=== PATIENT | female | born 1995 | race Caucasian/White ===

== ENCOUNTER 2016-03-28 10:41 | Emergency (ER) | payer MEDICAID ==
[2016-03-28 11:18] VITALS: BP 130/79
--- NOTE | 2016-04-07 16:02 | UC ---
Respiratory Complaint HPI - HPI Summary HPI Summary: seen ob doctor this morning--all is weel with fetus pt has been having 9 days of chest pain and coughing up blood, some fevers(subjective) some congestion- seen here by OB for evaluation - History of Current Complaint Chief Complaint: UCGeneralIllness Stated Complaint: SINUS CONGESTION Time Seen by Provider: 03/28/16 11:33 Hx Obtained From: Patient Hx Last Menstrual Period: JUNE 2015 ?: Yes Onset/Duration: Gradual Onset, Lasting Days - 9 Timing: Constant Severity Initially: Moderate Severity Currently: Moderate Pain Intensity: 8 Pain Scale Used: 0-10 Numeric Character: Sputum Description: - bloody Aggravating Factors: Deep Breaths Alleviating Factors: Nothing Associated Signs And Symptoms: Positive: Fever - subjective, Pleuritic Chest Pain, Edema - mild, URI, Nasal Congestion. Negative: Calf Swelling, Sinus Discomfort - Allergies/Home Medications Allergies/Adverse Reactions: Allergies Allergy/AdvReac Type Severity Reaction Status Date / Time No Known Allergies Allergy Verified 03/28/16 12:32 Home Medications: Home Medications GuaiFENesin DM* [Robitussin DM*] 03/28/16 [History] Ondansetron TAB* [Zofran Tab*] 03/28/16 [History] Pediatric Multiple Vitamin W/ [Flintstones Gummies Plus] 03/28/16 [History] Phenylephrine W/ Acetaminophen [Tylenol Sinus Congestion 5-325 mg] 03/28/16 [ History] PMH/Surg Hx/FS Hx/Imm Hx Previously Healthy: No Endocrine History Of: Denies: Diabetes, Thyroid Disease Cardiovascular History Of: Denies: Cardiac Disorders, Hypertension Respiratory History Of: Denies: COPD, Asthma GI/ History Of: Denies: Gastroesophageal Reflux, Ulcer Neurological History Of: Reports: Seizures - seizures when pt passess out. Last seizure was years ago per pt. Psychological History Of: Reports: Anxiety - counseling - Surgical History Surgical History: Yes Surgery Procedure, Year, and Place: Impacted teeth operated on in - Family History Known Family History: Positive: None, Diabetes Family History: FHx of thyroid diseae -- Mother. FHx of [place] - Social History Occupation: Unemployed Lives: With Family Alcohol Use: None Substance Use Type: None Smoking Status (MU): Never Smoked Tobacco - Immunization History Most Recent Influenza Vaccination: n/a Most Recent Tetanus Shot: 2014 Most Recent Pneumonia Vaccination: n/a Review of Systems Constitutional: Fever - subjective, Chills Skin: Negative Eyes: Negative ENT: Negative Respiratory: Cough Cardiovascular: Chest Pain Gastrointestinal: Negative Genitourinary: Negative Motor: Negative Neurovascular: Negative Musculoskeletal: Negative Neurological: Negative Psychological: Negative All Other Systems Reviewed And Are Negative: Yes Physical Exam Triage Information Reviewed: Yes Appearance: Well-Appearing, No Pain Distress, Well-Nourished Vital Signs: Initial Vital Signs Temp 97.9 F 03/28/16 11:14 Pulse 100 03/28/16 11:14 Resp 18 03/28/16 11:14 BP 130/79 03/28/16 11:14 Pulse Ox 99 03/28/16 11:14 Vital Signs Reviewed: Yes Eye Exam: Normal Eyes: Positive: Conjunctiva Clear ENT Exam: Normal ENT: Positive: Normal ENT inspection, Hearing grossly normal, TMs normal. Negative: Nasal congestion, Nasal drainage, Tonsillar swelling, Tonsillar exudate, Trismus, Muffled/hoarse voice Neck exam: Normal Neck: Positive: Supple, Nontender, No Lymphadenopathy Respiratory Exam: Normal Respiratory: Positive: Chest non-tender, Lungs clear, Normal breath sounds, No respiratory distress, No accessory muscle use Cardiovascular Exam: Normal Cardiovascular: Positive: RRR, No Murmur, Pulses Normal, Brisk Capillary Refill Musculoskeletal Exam: Normal Musculoskeletal: Positive: Strength Intact, ROM Intact, No Edema Neurological Exam: Normal Neurological: Positive: Alert, Muscle Tone Normal Psychological Exam: Normal Skin Exam: Normal UC Diagnostic Evaluation - Laboratory O2 Sat by Pulse Oximetry: 99 Respiratory Course/Dx - Course Course Of Treatment: transfer to ED - Differential Dx/Diagnosis Differential Diagnosis/HQI/PQRI: Pulmonary Edema, Lower Resp Infection, Pulmonary Embolism, Other - uri Provider Diagnoses: Chest pain, hemoptyis, Discharge - Discharge Plan Condition: Stable Disposition: AGAINST MEDICAL ADVICE Referrals: No Primary Care Phys,NOPCP [Primary Care Provider] -
== END 2016-03-28 11:43 | disposition left against medical advice (07) ==
LOC: UCEAST 10:41
DX: O26.899 Other specified pregnancy related conditions, unspecified trimester (principal); R07.89 Other chest pain; R04.2 Hemoptysis
CPT/HCPCS: 99212; G0463

== ENCOUNTER 2016-03-28 12:27 | Emergency (ER) | payer MEDICAID ==
[2016-03-28 12:32] VITALS: BP 133/77
--- NOTE | 2016-03-28 15:15 | ED ---
Influenza-Like Illness - HPI Summary HPI Summary: Patient is 37 weeks and presents with approximately 8 days of cough, sore throat, chest and nasal congestion. Because she has a history of bronchitis , she called her PONY TRIMMER to see if she should be evaluated since it had lasted 8 days. She was referred to [facility] where she reported producing dark colored blood tinged sputum when she coughed with SOB. She reported a fever, but admits to me her temperature was never higher than "99.something". She has been short of breath, but admits it is not any different than her normal feeling of breathing while being so . She denies any new SOB, CP, calf swelling or pain. Her throat has been sore without difficulty swallowing or breathing. Her vital signs are stable at this visit. - History of Current Complaint Chief Complaint: EDUpperRespComplaint Time Seen by Provider: 03/28/16 14:04 Hx Obtained From: Patient, Family/Skein Winding Operator Onset/Duration: Gradual Onset Severity: Mild Associated Signs & Symptoms: Cough, Sore Throat, Nasal Congestion - Allergy/Home Medications Allergies/Adverse Reactions: Allergies Allergy/AdvReac Type Severity Reaction Status Date / Time No Known Allergies Allergy Verified 03/28/16 12:32 PMH/Surg Hx/FS Hx/Imm Hx Endocrine/Hematology History: Reports: Hx Anemia Denies: Hx Diabetes, Hx Thyroid Disease Cardiovascular History: Denies: Hx Hypertension Respiratory History: Denies: Hx Asthma, Hx Chronic Obstructive Pulmonary Disease (COPD) GI History: Denies: Hx Ulcer History: Reports: Other Problems/Disorders - UTI in Neurological History: Reports: Hx Seizures - seizures when pt passess out. Last seizure was years ago per pt. Psychiatric History: Reports: Hx Anxiety - counseling - Surgical History Surgery Procedure, Year, and Place: Impacted teeth operated on in Infectious Disease History: No Infectious Disease History: Denies: Hx Clostridium Difficile, Hx Hepatitis, Hx Human Immunodeficiency Virus (HIV), Hx of Known/Suspected MRSA, Hx Shingles, Hx Tuberculosis, Traveled Outside the [place] in Last 30 Days - Family History Known Family History: Positive: None, Diabetes Family History: FHx of thyroid diseae -- Mother. FHx of [place] - Social History Alcohol Use: None Hx Substance Use: No Substance Use Type: Reports: None Hx Tobacco Use: No Smoking Status (MU): Current Every Day Smoker Review of Systems Negative: Fever, Chills, Fatigue Positive: Sore Throat, Nasal Discharge. Negative: Ear Ache Negative: Chest Pain Negative: Shortness Of Breath, Cough Negative: Abdominal Pain, Vomiting, Diarrhea, Nausea Negative: Myalgia, Edema Negative: Bruising Negative: Headache All Other Systems Reviewed And Are Negative: Yes Physical Exam Triage Information Reviewed: Yes Vital Signs On Initial Exam: Initial Vitals Temp Pulse Resp BP Pulse Ox 97.7 F 106 16 133/77 99 03/28/16 12:29 03/28/16 12:29 03/28/16 12:29 03/28/16 12:29 03/28/16 12:29 Vital Signs Reviewed: Yes Appearance: Positive: Well-Appearing, No Pain Distress, Obese - limits assessment Skin: Positive: Warm, Skin Color Reflects Adequate Perfusion, Dry, Soft. Negative: Tender, Erythema @ Head/Face: Positive: Normal Head/Face Inspection Eyes: Positive: EOMI, LIZETTE, Conjunctiva Clear ENT: Positive: Hearing grossly normal, Pharynx normal Neck: Positive: Supple, Nontender. Negative: No Lymphadenopathy Respiratory/Lung Sounds: Positive: Clear to Auscultation, Breath Sounds Present Cardiovascular: Positive: RRR - exam pulse was 86 Abdomen Description: Positive: Nontender, Soft Bowel Sounds: Positive: Present Musculoskeletal: Positive: Strength/ROM Intact. Negative: Pain @, Kvng Sign Left, Kvng Sign Right, Edema Left, Edema Right Neurological: Positive: Sensory/Motor Intact, Alert, Oriented to Person Place, Time, Normal Gait Psychiatric: Positive: Affect/Mood Appropriate AVPU Assessment: Alert Diagnostics - Vital Signs Vital Signs Temp Pulse Resp BP Pulse Ox 03/28/16 12:29 97.7 F 106 16 133/77 99 - Laboratory Lab Results: Negative strep Lab Statement: Any lab studies that have been ordered have been reviewed, and results considered in the medical decision making process. Flu Symptom Course/Dx - Course Course Of Treatment: Patient was discussed with Dr. Meredith due to the report given from [facility]. Upon exam and presentation the patient's symptoms were consistent with a viral syndrome. - Diagnoses Differential Diagnosis/HQI/PQRI: Positive: Bronchitis, Influenza, Pneumonia, RSV , Upper Respiratory Infection Provider Diagnoses: Viral syndrome Discharge - Discharge Plan Condition: Stable Disposition: HOME Patient Education Materials: Viral Syndrome (ED) Referrals: No Primary Care Phys,NOPCP [Primary Care Provider] - Additional Instructions: Please continue to use the over the counter medication you have been using, making sure to drink extra fluids. Follow-up with your PONY TRIMMER or primary care provider if your symptoms continue for a total of 14 days. If your symptoms worsen, you can return to the emergency department or speak with your PCP or OB/ NOVELTY TWISTER OPERATOR.
== END 2016-03-28 16:23 | disposition home or self-care (01) ==
LOC: ED 12:27
DX: O98.513 Other viral diseases complicating pregnancy, third trimester (principal); B34.9 Viral infection, unspecified; Z3A.37 37 weeks gestation of pregnancy; O99.333 Smoking (tobacco) complicating pregnancy, third trimester
CPT/HCPCS: 87651; 99282

== ENCOUNTER 2016-04-16 19:05 | Inpatient (IN) | payer MEDICAID, OTHER ==
[2016-04-16] MEDS ORDERED: Dinoprostone* 10 MG VAG.SUPP VAGINAL ONE (20:06)
[2016-04-17] MEDS ORDERED: Misoprostol TAB* 100 MCG VAGINAL ONE (09:47)
[2016-04-17] MEDS ORDERED: Misoprostol TAB* 100 MCG ONE ×2 (09:51→14:00)
[2016-04-17] MEDS: Misoprostol TAB* 100 MCG VAGINAL SCH (14:04)
[2016-04-17] MEDS ORDERED: Promethazine INJ(RESTRICTED)* 25 MG/ML 1 ML VIAL IV ONE (19:00)
[2016-04-17] MEDS: Nalbuphine* 20 MG/ML 1 ML VIAL IV PRN (19:27)
[2016-04-18] MEDS: Misoprostol TAB* 100 MCG VAGINAL SCH ×3 (03:39→04:13)
[2016-04-18 08:43] LABS: Hematocrit 33 % (35-47); Hemoglobin 10.8 g/dl (12.0-16.0); Mean Corpuscular HGB Conc 32 g/dl (31-36); Mean Corpuscular Hemoglobin 28 pg (27-31); Mean Corpuscular Volume 85 fL (80-97); Mean Platelet Volume 8 um3 (7.4-10.4); Red Blood Count 3.92 10^6/ul (4.0-5.4); Red Cell Distribution Width 15 % (10.5-15); White Blood Count 11.2 10^3/ul (3.5-10.8)
[2016-04-18] MEDS ORDERED: Oxytocin in LR* 20 UNITS/1,000 ML BAG IVPB SCH ×2 (10:00→23:00)
[2016-04-18] MEDS ORDERED: Lidocaine 1% MPF* 2 ML VIAL ONE (10:35)
[2016-04-18] MEDS ORDERED: OBEPIDURAL* 250 ML ONE (11:09)
[2016-04-18] MEDS ORDERED: fentaNYL* 50 MCG/ML 2 ML VIAL (100 MCG VIAL) ONE ×2 (11:09→21:49)
[2016-04-18] MEDS ORDERED: Famotidine TAB* 20 MG PO PRN (12:06)
[2016-04-18] MEDS ORDERED: Sodium Citrate/Citric Acid* 15 ML UDC PO PRN (12:06)
[2016-04-18] MEDS ORDERED: Phenylephrine IV* 40 MCG/ML 10 ML SYRINGE IV PUSH PRN ×2 (12:06)
[2016-04-18] MEDS ORDERED: OBEPIDURAL* 250 ML EPIDURAL SCH (13:00)
[2016-04-18] MEDS ORDERED: ceFOXitin 2 GM IVPREMIX* 2 GM/50 ML BAG ONE (20:44)
[2016-04-18] MEDS ORDERED: Sodium Bicarbonate 8.4% SYR* 10 ML SYRINGE ONE (20:58)
[2016-04-18] MEDS ORDERED: Lidocaine 2% EPI 1:200000 MPF* 20 ML VIAL ONE (20:58)
[2016-04-18] MEDS ORDERED: OXYTOCIN* 10 UNITS/ML 1 ML VIAL ONE (21:50)
[2016-04-18] MEDS ORDERED: Morphine PF AMP (0.5MG/ML)* 5 MG/10 ML AMP ONE (21:54)
[2016-04-18] MEDS ORDERED: Nalbuphine* 20 MG/ML 1 ML VIAL IV PRN (22:06)
[2016-04-18] MEDS ORDERED: Ondansetron INJ* 2 MG/ML VIAL IV PRN (22:06)
[2016-04-18] MEDS ORDERED: DiMENhydriNATE IV* 50 MG/ML VIAL IV PUSH PRN (22:06)
[2016-04-18] MEDS ORDERED: Naloxone* 0.4 MG/ML 1 ML VIAL IV PRN (22:06)
[2016-04-18] MEDS ORDERED: Glycerin ADULT SUPP PR PRN (22:30)
[2016-04-18] MEDS ORDERED: Witch Hazel PAD* JAR TOPICAL PRN (22:30)
[2016-04-18] MEDS ORDERED: Zolpidem TAB* 5 MG PO PRN (22:30)
[2016-04-18] MEDS ORDERED: Acetaminophen TAB* 325 MG PO PRN (22:30)
[2016-04-18] MEDS ORDERED: Dibucaine 1% 28.35 GM TUBE PR PRN (22:30)
[2016-04-19] MEDS: Ibuprofen TAB* 600 MG PO SCH ×3 (01:31→11:00)
[2016-04-19] MEDS ORDERED: Ammonia Inhalant* 1 EA AMP ONE (05:01)
[2016-04-19] MEDS ORDERED: Lidocaine 1% MPF wEPI 200,000* 30 ML SDV ONE (05:53)
[2016-04-19 07:15] LABS: Hematocrit 27 % (35-47); Hemoglobin 8.9 g/dl (12.0-16.0); Mean Corpuscular HGB Conc 33 g/dl (31-36); Mean Corpuscular Hemoglobin 28 pg (27-31); Mean Corpuscular Volume 85 fL (80-97); Mean Platelet Volume 8 um3 (7.4-10.4); Red Cell Distribution Width 15 % (10.5-15); White Blood Count 13.2 10^3/ul (3.5-10.8)
[2016-04-19] MEDS: Nalbuphine* 20 MG/ML 1 ML VIAL IV PRN (08:20)
[2016-04-19] MEDS: Simethicone TAB* 80 MG TAB.CHEW PO SCH ×4 (08:24→20:53)
[2016-04-19] MEDS: Docusate CAP* 100 MG PO SCH ×3 (08:24→20:53)
[2016-04-19] MEDS ORDERED: Measles, Mumps,Rubella VACC* 0.5 ML/VIAL SUBCUT ONE (09:00)
[2016-04-19] MEDS: Ferrous Gluconate TAB* 324 MG TAB PO SCH ×2 (12:15→20:53)
[2016-04-19] MEDS ORDERED: oxyCODONE/Acetamin 5/325 MG* TAB PO PRN (14:00)
[2016-04-19] MEDS: oxyCODONE/Acetamin 5/325 MG* TAB PO PRN ×3 (14:00→22:27)
--- NOTE | 2016-04-19 14:33 | OP ---
DATE OF OPERATION: 04/18/16 - ROOM #[id number] DATE OF : 89 SURGEON: Gallo Vaughn MD WEIGH BOX TENDER: Kristi Washington CNM ANESTHESIOLOGIST: Jorge Molina MD ANESTHESIA: Epidural. PRE-OP DIAGNOSES: Arrest of dilation, failed induction, and post dates. POST-OP DIAGNOSES: Arrest of dilation, failed induction, and post dates. OPERATIVE PROCEDURE: Low transverse section. ESTIMATED BLOOD LOSS: 600 cc. FINDINGS: This is a 20-year-old 1, para 0, who presented at 40 plus weeks for induction of labor. She had two days of prostaglandins followed by artificial rupture of membranes and Pitocin. She started at 1-cm dilation and progressed to 3-cm dilation throughout the course of the day. She remained 3 cm for approximately 6 hours without any change; and, at this time, the risks, benefits, alternatives, indications of section were discussed with the patient and questions were answered. At the time of , she had a viable male. Apgars 8 and 9, and weight was 8 pounds 12 ounces. Normal-appearing uterus, fallopian tubes, and ovaries. DESCRIPTION OF PROCEDURE: The patient identified, procedure identified as a low transverse section. The patient was taken to the operating room, prepped and draped in the usual fashion in the left lateral recumbent position under epidural anesthesia. Pfannenstiel incision was made and carried down through fat, fascia, and peritoneum. A transverse incision was made in the lower uterine segment and extended laterally using blunt dissection. The above infant was delivered with ease. Cord was doubly clamped and cut, and the was handed to the waiting quality rep. Cord blood was obtained. Placenta delivered spontaneously. The uterus was wiped out with a wet lap sponge. Uterus ___was brought out through__ the abdominal incision, closed using 0 Polysorb in a running fashion. Hemostasis was verified. The uterus placed back in the abdominal cavity. A second layer was used to imbricate the first layer with good hemostasis. The gutter was wiped out with a wet lap sponge. The peritoneum was then closed using 3-0 Polysorb in a running fashion. Good hemostasis was achieved in the subrectus layers and the fascia was closed using 0 Polysorb in a running fashion. Good hemostasis achieved in the subcu. Copious irrigation was utilized and suctioned out and the skin was closed subcuticularly using 4-0 Monocryl. All sponge and instrument counts were correct. The patient was returned to the recovery room in stable condition. [id number]/[facility] #: [id number] HEMANT
[2016-04-19] MEDS: Ibuprofen TAB* 600 MG PO PRN ×2 (16:13→22:26)
[2016-04-19] MEDS: Misoprostol TAB* 100 MCG VAGINAL SCH (20:08)
[2016-04-20] MEDS: oxyCODONE/Acetamin 5/325 MG* TAB PO PRN ×4 (02:41→20:21)
[2016-04-20] MEDS: Ibuprofen TAB* 600 MG PO PRN ×3 (06:38→18:29)
[2016-04-20] MEDS: Ferrous Gluconate TAB* 324 MG TAB PO SCH ×2 (09:15→20:21)
[2016-04-20] MEDS: Docusate CAP* 100 MG PO SCH ×3 (09:16→20:22)
[2016-04-20] MEDS: Simethicone TAB* 80 MG TAB.CHEW PO SCH ×4 (09:18→20:21)
[2016-04-21] MEDS: Ibuprofen TAB* 600 MG PO PRN (02:23)
[2016-04-21] MEDS: oxyCODONE/Acetamin 5/325 MG* TAB PO PRN (02:24)
[2016-04-21 07:54] VITALS: BP 135/79
[2016-04-21] MEDS: Simethicone TAB* 80 MG TAB.CHEW PO SCH (09:48)
[2016-04-21] MEDS: Ferrous Gluconate TAB* 324 MG TAB PO SCH (09:48)
[2016-04-21] MEDS: Docusate CAP* 100 MG PO SCH (09:48)
== END 2016-04-21 11:03 | disposition home or self-care (01) | DRG 540 ==
LOC: MCHOBOUT 19:05 → MCHOB 04-18 08:08
PROVIDERS: ADMIT Obstetrics & Gynecology; ATTEND Obstetrics & Gynecology
PROC: 10907ZC Drainage of Amniotic Fluid, Therapeutic from Products of Conception, Via Natural or Artificial Opening (ICD-10-PCS; 2016-04-18)
PROC: 3E033VJ Introduction of Other Hormone into Peripheral Vein, Percutaneous Approach (ICD-10-PCS; 2016-04-18)
PROC: 10D00Z1 Extraction of Products of Conception, Low, Open Approach (ICD-10-PCS; principal; 2016-04-18 21:16)
DX: O62.1 Secondary uterine inertia (principal); Z68.42 Body mass index [BMI] 45.0-49.9, adult; O48.0 Post-term pregnancy; O62.0 Primary inadequate contractions; O99.214 Obesity complicating childbirth; E66.01 Morbid (severe) obesity due to excess calories; O90.81 Anemia of the puerperium; D64.9 Anemia, unspecified; Z3A.40 40 weeks gestation of pregnancy; Z37.0 Single live birth
CPT/HCPCS: 36415; 59200; 85025; 86850; 86900; 86901; 90707; A9270-GY; J0694; J2001; J2300; J2550; J2590; J3010; S0191

== ENCOUNTER 2017-09-12 11:07 | Emergency (ER) | payer MEDICAID, OTHER ==
[2017-09-12] MEDS ORDERED: NS 0.9% 1000 ML* 1,000 ML IV ONE (11:50)
--- NOTE | 2017-09-12 12:20 | ED ---
GI/ HPI - HPI Summary HPI Summary: patient is a 22-year-old female presenting to the ED with vaginal bleeding, erythema and irritation to the vaginal monahan as well as white discharge. She was seen at [facility] urgent care 5 days ago and physical examination revealed likeliness of kvng. Patient states 3 days ago she was started on terconazole vaginal cream for yeast infection. 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 Denies any dizziness, fatigue, headache or other symptoms. She states pain is 1/10 located most notably around the vagina. Currently has Mirena IUD 1.5 years and states she has had a history of this shifting in the past and is concerned over the malposition or protrusion through the uterine wall. Denies history or chance of STDs. . No history of vaginal bleeding 2 years. She endorses improvement of her symptoms after day 1 of taking terconazole, however on day 2 she developed vaginal bleeding and last evening (day 3), developed the same symptoms of redness, irritation and burning to the vaginal monahan. - History of Current Complaint Chief Complaint: EDVaginalBleeding Time Seen by Provider: 09/12/17 11:19 Stated Complaint: BLEEDING HEAVILY WITH IUD Hx Obtained From: Patient Hx Last Menstrual Period: JUNE 2015 Onset/Duration: Started Hours Ago Timing: Constant Severity: Moderate Current Severity: Mild Vaginal Bleeding Description: Bright Red Number of Pads per Day: 2 Pain Intensity: 4 Location of Pain: Other - vaginal Pain Characteristics: Aching, Burning Associated Signs and Symptoms: Positive: Negative. Negative: Flank Pain, Chills , Lightheadedness, New Sexual Partner, UTI Symptoms Additional Signs & Symptoms: Positive: Vaginal Bleeding, Vaginal Discharge, - 1, Para - 1, IUD. Negative: Genital Swelling, Genital Blisters, Pelvic Infammatory Disease, STD Aggravating Factor(s): Nothing Alleviating Factor(s): Nothing - Additional Pertinent History Primary Care Physician: [id number] - Allergy/Home Medications Allergies/Adverse Reactions: Allergies Allergy/AdvReac Type Severity Reaction Status Date / Time No Known Allergies Allergy Verified 04/16/16 19:59 PMH/Surg Hx/FS Hx/Imm Hx Previously Healthy: Yes Endocrine/Hematology History: Reports: Hx Anemia Denies: Hx Diabetes, Hx Thyroid Disease Cardiovascular History: Denies: Hx Hypertension Respiratory History: Denies: Hx Asthma, Hx Chronic Obstructive Pulmonary Disease (COPD) GI History: Denies: Hx Ulcer History: Reports: Other Problems/Disorders - UTI in Neurological History: Reports: Hx Seizures - seizures when pt passess out. Last seizure was years ago per pt. Psychiatric History: Reports: Hx Anxiety - counseling - Surgical History Surgery Procedure, Year, and Place: Impacted teeth operated on in - Immunization History Hx Pertussis Vaccination: No Immunizations Up to Date: Unable to Obtain/Confirm Infectious Disease History: No Infectious Disease History: Denies: Hx Clostridium Difficile, Hx Hepatitis, Hx Human Immunodeficiency Virus (HIV), Hx of Known/Suspected MRSA, Hx Shingles, Hx Tuberculosis, Traveled Outside the [place] in Last 30 Days - Family History Known Family History: Positive: None, Diabetes Family History: FHx of thyroid diseae -- Mother. FHx of [place] - Social History Occupation: Unemployed Lives: With Family Alcohol Use: None Hx Substance Use: No Substance Use Type: Reports: None Hx Tobacco Use: No Smoking Status (MU): Former Smoker Review of Systems Constitutional: Negative Negative: Fever, Chills, Fatigue, Skin Diaphoresis Negative: Palpitations, Chest Pain Negative: Shortness Of Breath Genitourinary: Negative, Other - vaginal bleeding with pelvic pain Positive: no symptoms reported, see HPI Negative: Arthralgia Negative: Headache, Weakness, Paresthesia, Numbness Psychological: Normal All Other Systems Reviewed And Are Negative: Yes Physical Exam Triage Information Reviewed: Yes Vital Signs On Initial Exam: Initial Vitals Temp Pulse Resp BP Pulse Ox 98.8 F 79 18 127/60 99 09/12/17 11:13 09/12/17 11:13 09/12/17 11:13 09/12/17 11:13 09/12/17 11:13 Vital Signs Reviewed: Yes Appearance: Positive: Well-Appearing - hemodynamically stable, Well-Nourished Skin: Positive: Warm, Skin Color Reflects Adequate Perfusion Head/Face: Positive: Normal Head/Face Inspection Eyes: Positive: EOMI, LIZETTE, Conjunctiva Clear Neck: Positive: Supple, No Lymphadenopathy Respiratory/Lung Sounds: Positive: Clear to Auscultation, Breath Sounds Present Cardiovascular: Positive: RRR, Pulses are Symmetrical in both Upper and Lower Extremities Abdomen Description: Positive: Nontender Bowel Sounds: Positive: Present Musculoskeletal: Positive: Normal, Strength/ROM Intact Neurological: Positive: Sensory/Motor Intact, Alert, Oriented to Person Place, Time, Speech Normal Psychiatric: Positive: Normal, Affect/Mood Appropriate Diagnostics - Vital Signs Vital Signs Temp Pulse Resp BP Pulse Ox 09/12/17 11:13 98.8 F 79 18 127/60 99 - Laboratory Result Diagrams: 09/12/17 12:09 09/12/17 12:09 Lab Statement: Any lab studies that have been ordered have been reviewed, and results considered in the medical decision making process. Re-Evaluation - Re-Evaluation First Eval Change: Improved - On re-evaluation she is deying any pain with her PL was traveling certainly with GIGU Course/Dx - Course Course Of Treatment: During the course treatment, the patient's evaluated for pelvic pain and vaginal bleeding. No history or chance of STDs per patient. Labs obtained which are unremarkable. TVUS to assess placement of IUD. IUD in place. Bleeding noted to be less than yesterday per patient. Hippa form completed through [facility] and obtained recent records the patient's stay. She was treated for a yeast infection, however labs show this was negative. She is positive for a UTI at [facility], but was not started on an antibiotic. We will start her on the anitbiotic at this time since she remains symptomatic. Vaginal bleeding decreased now and she will follow up with OBGYN regarding this. She voices no concerns and is OK for discharge. - Diagnoses Provider Diagnoses: UTI (urinary tract infection) Discharge - Sign-Out/Discharge Documenting (check all that apply): Discharge/Admit/Transfer - Discharge Plan Condition: Stable Disposition: HOME Prescriptions: Nitrofurantoin Monohyd/M-Cryst [Macrobid 100 mg Capsule] 100 mg PO BID #14 cap Patient Education Materials: Urinary Tract Infection in Women (ED) Referrals: Chanelle Santos MD [Medical Doctor] - Katelyn Leblanc MD [Primary Care Provider] - Additional Instructions: Macrobid twice daily x 7 days Please follow up with Dr. Wild or our OBGYN If you develop worsening symptoms or have any worsening vaginal bleeding you're soaking through 1 pad per hour, return to the ED [id number] topical gel was to the vaginal wall for comfort You are being treated for a UTI as records from [facility] show positive for UTI, negative for other pathologies as discussed - Billing Disposition and Condition Condition: STABLE Disposition: Home
[2017-09-12 12:22] LABS: ABS Basophils 0 10^3/ul (0-0.2); ABS Eosinophils 0 10^3/ul (0-0.6); ABS Lymphocytes 2.2 10^3/ul (1.0-4.8); ABS Monocytes 0.5 10^3/ul (0-0.8); ABS Neutrophils 3.6 10^3/ul (1.5-7.7); ABS Nucleated RBC 0 10^3/ul; Eosinophil % 0.7 % (0-6); Hematocrit 42 % (35-47); Hemoglobin 14.4 g/dl (12.0-16.0); Lymphocyte % 34.9 % (25-47); Mean Corpuscular HGB Conc 35 g/dl (31-36); Mean Corpuscular Hemoglobin 31 pg (27-31); Mean Corpuscular Volume 90 fL (80-97); Mean Platelet Volume 7.9 um3 (7.4-10.4); Nucleated Red Blood Cells % 0.1; Platelet Count 274 10^3/ul (150-450); Red Blood Count 4.61 10^6/ul (4.00-5.40); Red Cell Distribution Width 13 % (10.5-15); White Blood Count 6.3 10^3/ul (3.5-10.8)
[2017-09-12 12:30] LABS: INR 0.97 (0.77-1.02)
[2017-09-12 12:44] LABS: EGFR Non-African American 105.4 (>60)
--- NOTE | 2017-09-12 13:19 | RAD ---
Indication: Evaluate placement of IUD. Real-time sonography of the pelvis was performed. The uterus measures 6.7 x 3.6 x 4.4 cm. Endometrial echo measures 0.4 cm. IUD appears in place. The right ovary measures 4.9 x 1.9 x 2.5 cm. Left ovary measures 4.6 x 1.4 x 3.2 cm. Doppler interrogation demonstrates flow in both ovaries. IMPRESSION: IUD in place. No adnexal masses are noted.
[2017-09-12 14:44] VITALS: BP 120/70
== END 2017-09-12 14:43 | disposition home or self-care (01) ==
LOC: ED 11:07
DX: N39.0 Urinary tract infection, site not specified (principal); Z87.891 Personal history of nicotine dependence; D64.9 Anemia, unspecified; Z97.5 Presence of (intrauterine) contraceptive device
CPT/HCPCS: 36415; 76830; 80053; 83605; 84702; 85025; 85610; 85730; 86850; 86900; 86901; 96360; 99282

== ENCOUNTER 2018-03-26 09:06 | Emergency (ER) | payer MEDICAID, OTHER ==
[2018-03-26] MEDS ORDERED: diPHENhydraMINE IV* 50 MG/ML 1 ml VIAL (BENADRYL) IV ONE (09:14)
[2018-03-26] MEDS ORDERED: NS 0.9% 1000 ML* 1,000 ML IV ONE (09:14)
[2018-03-26] MEDS ORDERED: Metoclopramide IV* 5 MG/ML 2 ML VIAL IV ONE (09:14)
--- NOTE | 2018-03-26 09:26 | ED ---
GI/ HPI - HPI Summary HPI Summary: Patient is a 22 y/o F who states she is 10 weeks (due date 10/24/18) with complaints of hyperemesis. She notes that she has had similar Sx during her past two pregnancies. Patient is concerned about dehydration. Upon waking up this morning, she states that she was shaky, tired, and achy. Frequency of vomiting varies, noting some days she vomits every hour, others once a day. Onset two weeks ago. She states that at first she was just nausea, then hyperemesis developed. Recent cold reported, no flu. No diarrhea, no palpitations, no Hx of HTN, diabetes. OBGYN appointment coming up 04/07, last visit was 03/08/18. On triage, associated severity is rated 3/10, eating/ drinking is noted to aggravate Sx, nothing is reported to alleviate Sx. Home medications, allergies, and nurse's note are reviewed. - History of Current Complaint Chief Complaint: EDWeakness Stated Complaint: 10 WEEKS PREG/POSS DEHYDRATION Hx Obtained From: Patient Hx Last Menstrual Period: JUNE 2015 Onset/Duration: Started Weeks Ago - two weeks ago, Still Present, Worse Since Timing: Constant, Lasting Weeks - two weeks ago Severity: Mild - 3/10 Current Severity: Mild - 3/10 Pain Intensity: 3 Associated Signs and Symptoms: Positive: Nausea, Vomiting, Other: - POSITIVE - DEHYDRATION, SHAKY, TIRED, ACHY; NEGATIVE - PALPITATIONS. Negative: Diarrhea Aggravating Factor(s): Food, Liquids Alleviating Factor(s): Nothing - Additional Pertinent History Primary Care Physician: THONY - Allergy/Home Medications Allergies/Adverse Reactions: Allergies Allergy/AdvReac Type Severity Reaction Status Date / Time No Known Allergies Allergy Verified 03/26/18 09:10 Home Medications: Home Medications Pnv51/Iron Fum/FA/Om-3/Dha/Epa [ Multi + Dha Softgel] 1 tab PO DAILY 01/02 [History Confirmed 03/26/18] Sertraline* [Zoloft*] 50 mg PO DAILY 03/26/18 [History Confirmed 03/26/18] PMH/Surg Hx/FS Hx/Imm Hx Endocrine/Hematology History: Reports: Hx Anemia Denies: Hx Diabetes, Hx Thyroid Disease Cardiovascular History: Denies: Hx Hypertension Respiratory History: Denies: Hx Asthma, Hx Chronic Obstructive Pulmonary Disease (COPD) GI History: Denies: Hx Ulcer History: Reports: Other Problems/Disorders - UTI in Neurological History: Reports: Hx Seizures - seizures when pt passess out. Last seizure was years ago per pt. Psychiatric History: Reports: Hx Anxiety - counseling - Surgical History Surgery Procedure, Year, and Place: Impacted teeth operated on in Infectious Disease History: No Infectious Disease History: Denies: Hx Clostridium Difficile, Hx Hepatitis, Hx Human Immunodeficiency Virus (HIV), Hx of Known/Suspected MRSA, Hx Shingles, Hx Tuberculosis, Traveled Outside the [place] in Last 30 Days - Family History Known Family History: Positive: Diabetes Family History: FHx of thyroid diseae -- Mother. FHx of [place] - Social History Alcohol Use: None Hx Substance Use: No Substance Use Type: Reports: None Hx Tobacco Use: No Smoking Status (MU): Former Smoker Review of Systems Positive: Fatigue, Other - POSITIVE - SHAKINESS, DEHYDRATION, RECENT COLD SX Negative: Palpitations Positive: Vomiting, Nausea. Negative: Diarrhea Positive: Myalgia - ACHINESS All Other Systems Reviewed And Are Negative: Yes Physical Exam - Summary Physical Exam Summary: Appearance: Well appearing, no pain distress Skin: warm, dry, reflects adequate perfusion Head/face: normal Eyes: EOMI, LIZETTE ENT: mucous membranes moist Neck: supple, non-tender Respiratory: CTA, breath sounds present Cardiovascular: RRR, pulses symmetrical Abdomen: non-tender, soft Bowel Sounds: present Musculoskeletal: normal, strength/ROM intact Neuro: normal, sensory motor intact, A&Ox3 Triage Information Reviewed: Yes Vital Signs On Initial Exam: Initial Vitals Temp Pulse Resp BP Pulse Ox 97.1 F 90 18 120/76 97 03/26/18 09:07 03/26/18 09:07 03/26/18 09:07 03/26/18 09:07 03/26/18 09:07 Vital Signs Reviewed: Yes Diagnostics - Vital Signs Vital Signs Temp Pulse Resp BP Pulse Ox 03/26/18 09:07 97.1 F 90 18 120/76 97 - Laboratory Result Diagrams: 03/26/18 09:31 03/26/18 09:31 Lab Statement: Any lab studies that have been ordered have been reviewed, and results considered in the medical decision making process. - Ultrasound No standard instances Ultrasound Interpretation Completed By: ED Physician Summary of Ultrasound Findings: Bedside US showed intrauternine 6 weeks present CRL, heart tone heard. 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 Unisom and B complex vitamin taken before bed may help with nausea. Return if worse, unable to keep down fluids, new symptoms or other concerns. Gatorade G2 may he helpful. - Attestation Statements Document Initiated by Scribe: Yes Documenting Scribe: BHARGAVI YOU Provider For Whom Scribe is Documenting (Include Credential): JACKY SMILEY MD Scribe Attestation: I, BHARGAVI YOU , scribed for JACKY SMILEY MD on 03/26/18 at 1043. Status of Scribe Document: Ready
[2018-03-26 09:49] LABS: ABS Basophils 0 10^3/ul (0-0.2); ABS Eosinophils 0.1 10^3/ul (0-0.6); ABS Lymphocytes 2.2 10^3/ul (1.0-4.8); ABS Monocytes 0.6 10^3/ul (0-0.8); ABS Neutrophils 6.3 10^3/ul (1.5-7.7); ABS Nucleated RBC 0 10^3/ul; Eosinophil % 0.7 %; Hematocrit 40 % (35-47); Hemoglobin 13.8 g/dl (12.0-16.0); Lymphocyte % 23.4 %; Mean Corpuscular HGB Conc 34 g/dl (31-36); Mean Corpuscular Hemoglobin 31 pg (27-31); Mean Corpuscular Volume 91 fL (80-97); Nucleated Red Blood Cells % 0; Platelet Count 243 10^3/ul (150-450); Red Blood Count 4.42 10^6/ul (4.00-5.40); Red Cell Distribution Width 13 % (10.5-15); White Blood Count 9.2 10^3/ul (3.5-10.8)
[2018-03-26] MEDS ORDERED: diPHENhydraMINE PO* 25 MG PO ONE (09:52)
[2018-03-26] MEDS ORDERED: diPHENhydraMINE PO* 50 MG ONE ×2 (09:54)
[2018-03-26] MEDS ORDERED: diPHENhydraMINE PO* 50 MG PO ONE (10:02)
[2018-03-26 10:06] LABS: BUN/Creatinine Ratio 10.5 (8-20); Calcium 9.8 mg/dL (8.6-10.3); EGFR Non-African American 131.4 (>60)
[2018-03-26 11:21] VITALS: BP 107/49
== END 2018-03-26 11:20 | disposition home or self-care (01) ==
LOC: ED 09:06
DX: O21.8 Other vomiting complicating pregnancy (principal); Z3A.10 10 weeks gestation of pregnancy; E86.0 Dehydration; Z87.891 Personal history of nicotine dependence; R53.83 Other fatigue
CPT/HCPCS: 36415; 80048; 85025; 96361; 96374; 96375; 99283; A9270-GY; J2765

== ENCOUNTER 2018-04-02 13:32 | Emergency (ER) | payer OTHER ==
--- NOTE | 2018-04-02 14:24 | ED ---
- HPI Summary HPI Summary: This patient is a 22 year old F presenting to [facility] with a chief complaint of hyperemesis, today she has had 6 episodes. The patient is 8 week estimate and has not seen OB yet. She was here last week and gestational age was based on ED US from last week. While she was here she was given Zofran pills , not dissolving tablets, to take home but she cannot keep it down. She reports dizziness today but has had not had any LOC. She has also has had blood tinged vomit occasionally, she has had this in the past with another . She reports myalgia. She has a hx of one miscarriage and hx of anemia with . Her last BM was over two days ago. The patient rates the pain 7/10 in severity. Patient reports ABD pain. Patient denies fever, diaphoresis, chills , pelvic cramps, vaginal bleeding, hematuria, and dysuria. She has not urinated since 0600 today and states even then she had low dark output. . - History of Current Complaint Chief Complaint: EDNauseaVomitDiarrh Stated Complaint: 9 WEEKS PREG/POSS DEHYDRATION Time Seen by Provider: 04/02/18 14:07 Hx Obtained From: Patient Chief Complaint: Other: - vomiting Onset/Duration: Still Present Timing: Constant Pain Intensity: 7 - Assessment Hx Now: Yes SAB: 0 IEA: 0 - Additional Pertinent History Primary Care Physician: [id number] Maternal Blood Type and Rh: O Positive - Allergies/Home Medications Allergies/Adverse Reactions: Allergies Allergy/AdvReac Type Severity Reaction Status Date / Time No Known Allergies Allergy Verified 03/26/18 09:10 PMH/Surg Hx/FS Hx/Imm Hx Endocrine/Hematology History: Reports: Hx Anemia Denies: Hx Diabetes, Hx Thyroid Disease Cardiovascular History: Denies: Hx Hypertension Respiratory History: Denies: Hx Asthma, Hx Chronic Obstructive Pulmonary Disease (COPD) GI History: Denies: Hx Ulcer History: Reports: Other Problems/Disorders - UTI in Neurological History: Reports: Hx Seizures - seizures when pt passess out. Last seizure was years ago per pt. Psychiatric History: Reports: Hx Anxiety - counseling - Surgical History Surgery Procedure, Year, and Place: Impacted teeth operated on in Infectious Disease History: No Infectious Disease History: Denies: Hx Clostridium Difficile, Hx Hepatitis, Hx Human Immunodeficiency Virus (HIV), Hx of Known/Suspected MRSA, Hx Shingles, Hx Tuberculosis, Traveled Outside the [place] in Last 30 Days - Family History Known Family History: Positive: None, Diabetes Family History: FHx of thyroid diseae -- Mother. FHx of [place] - Social History Alcohol Use: None Hx Substance Use: No Substance Use Type: Reports: None Hx Tobacco Use: No Smoking Status (MU): Former Smoker Review of Systems Negative: Fever, Chills, Skin Diaphoresis Negative: Erythema Negative: Sore Throat Negative: Chest Pain Negative: Shortness Of Breath, Cough Gastrointestinal: Other - constipation Positive: Abdominal Pain, Vomiting, Nausea Genitourinary: Negative - pelvic cramps, vaginal bleeding, , Other - low output Negative: dysuria, hematuria Negative: Myalgia Negative: Rash Neurological: Other - dizziness Negative: Syncope All Other Systems Reviewed And Are Negative: Yes Physical Exam - Summary Physical Exam Summary: Constitutional: Well-developed, Well-nourished, Alert. (-) Distressed Skin: Warm, Dry HENT: Normocephalic; Atraumatic Eyes: Conjunctiva normal Neck: Musculoskeletal ROM normal neck. (-) JVD, (-) Stridor, (-) Tracheal deviation Cardio: Rhythm regular, rate normal, Heart sounds normal; Intact distal pulses; The pedal pulses are 2+ and symmetric. Radial pulses are 2+ and symmetric. (-) Murmur Pulmonary/Chest wall: Effort normal. (-) Respiratory distress, (-) Wheezes, (-) Rales Abd: Soft, (-) epigastric tenderness, (-) Distension, (-) Guarding, (-) Rebound Musculoskeletal: (-) Edema Lymph: (-) Cervical adenopathy Neuro: Alert, Oriented x3 Psych: Mood and affect Normal - Physical Exam Triage Information Reviewed: Yes Vital Signs Reviewed: Yes Diagnostics - Vital Signs Vital Signs Temp Pulse Resp BP Pulse Ox 04/02/18 13:45 97.8 F 81 18 115/75 99 - Laboratory Result Diagrams: 04/02/18 15:21 04/02/18 14:05 Lab Statement: Any lab studies that have been ordered have been reviewed, and results considered in the medical decision making process. Re-Evaluation - Re-Evaluation First Eval Re-Evaluation Time: 15:07 Comment: The patient confides in me that she wants to abort the fetus if she cannot get her sx under control. She is missing work, her is missing work, and she is unable to care for her current child. [facility] contacted [facility] and they cannot get her in for a month and she is looking for other resources. Second Eval Re-Evaluation Time: 17:52 Change: Improved Comment: The patient tolerate PO intake. Course/Dx - Course Assessment/Plan: This patient is a 22 year old F presenting to [facility] with a chief complaint of hyperemesis, today she has had 6 episodes. The patient is 8 week estimate and has not seen OB yet. She was here last week and gestational age was based on ED US from last week. While she was here she was given Zofran pills, not dissolving tablets, to take home but she cannot keep it down. She reports dizziness today but has had not had any LOC. She has also has had blood tinged vomit occasionally, she has had this in the past with another . She reports myalgia. She has a hx of one miscarriage and hx of anemia with . Her last BM was over two days ago. The patient rates the pain 7/10 in severity. Patient reports ABD pain. Patient denies fever, diaphoresis, chills, pelvic cramps, vaginal bleeding, hematuria, and dysuria. She has not urinated since 0600 today and states even then she had low dark output. . Bloodwork obtained. Test results with no significant abnormalities except for _. In the ED course the patient was given zofran and IV fluids. We discussed patient care with Dr Lund and states the patient cannot receive an in the ED . Patient will be discharged and follow up from Dr. Lund. The patient is agreeable with this plan. - Diagnoses Provider Diagnoses: Hyperemesis gravidarum, Starvation ketoacidosis, Dehydration - Provider Notifications Discussed Care Of Patient With: Rosemarie Lund Time Discussed With Above Provider: 16:30 Instructed by Provider To: Other - She [facility] and that she is surprised how long the wait is. She states we are unable to terminate pregnancies any time over twelve weeks and that the patient should be referred to a larger center is needed. Discharge - Sign-Out/Discharge Documenting (check all that apply): Patient Departure - Discharge Plan Condition: Stable Disposition: HOME Patient Education Materials: Dehydration (ED), Hyperemesis Gravidarum (ED) Referrals: Rosemarie Lund MD [Medical Doctor] - [facility], [Z.CONVERSION PROVIDER TYPE] - (As works for you. ) Additional Instructions: RETURN TO THE EMERGENCY DEPARTMENT FOR CHANGING OR WORSENING SYMPTOMS - Attestation Statements Document Initiated by Scribe: Yes Documenting Scribe: Colby Rivera Provider For Whom Scribe is Documenting (Include Credential): Carlos Suarez MD Scribe Attestation: Colby Parmar , scribed for Carlos Suarez MD on 04/02/18 at 1752. Status of Scribe Document: Ready
[2018-04-02] MEDS ORDERED: Ondansetron ODT TAB* 4 MG PO ONE (15:05)
[2018-04-02] MEDS ORDERED: NS 0.9% 1000 ML* 2,000 ML IV ONE (15:12)
[2018-04-02 15:15] LABS: Albumin 4.6 g/dL (3.2-5.2); Calcium 9.6 mg/dL (8.6-10.3); Total Bilirubin 0.4 mg/dL (0.2-1.0)
[2018-04-02 15:21] LABS: Albumin/Globulin Ratio 1.4 (1-3); BUN/Creatinine Ratio 16.1 (8-20); EGFR African American 144.3 (>60); EGFR Non-African American 119.3 (>60); Globulin 3.3 g/dL (2-4); Total Protein 7.9 g/dL (6.4-8.9)
[2018-04-02 15:31] LABS: Hematocrit 41 % (35-47); Hemoglobin 14.1 g/dl (12.0-16.0); Mean Corpuscular HGB Conc 34 g/dl (31-36); Mean Corpuscular Hemoglobin 31 pg (27-31); Mean Corpuscular Volume 91 fL (80-97); Mean Platelet Volume 7.7 fL (7.4-10.4); Platelet Count 272 10^3/ul (150-450); Red Blood Count 4.56 10^6/ul (4.00-5.40); Red Cell Distribution Width 13 % (10.5-15); White Blood Count 11.8 10^3/ul (3.5-10.8)
[2018-04-02 16:11] LABS: Potassium 3.6 mmol/L (3.5-5.0)
[2018-04-02 18:05] VITALS: BP 117/61
== END 2018-04-02 18:05 | disposition home or self-care (01) ==
LOC: ED 13:32
DX: O21.0 Mild hyperemesis gravidarum (principal); E87.2 Acidosis; E86.0 Dehydration; Z3A.08 8 weeks gestation of pregnancy; Z87.891 Personal history of nicotine dependence
CPT/HCPCS: 36415; 80053; 84702; 85027; 96360; 99283; A9270-GY